=== PATIENT | female | born 1955 | race Hispanic/Latino ===

== ENCOUNTER 2016-11-27 16:16 | Observation (INO) | payer MEDICARE, OTHER ==
--- NOTE | 2016-11-27 16:51 | ED PDOC ---
Arrival/HPI - General Historian: Patient - History of Present Illness Time/Duration: Other (2 days) Context: Home - General Chief Complaint: Upper Extremity Problem/Injury Time Seen by Provider: 11/27/16 16:36 - History of Present Illness Narrative History of Present Illness (Text): 11/27/16 16:30 This 61 yo female presents to this ED c/o left 4th finger tip abscess x 2 days. Patient noted redness extending to her forearm. Patient is currently taking Humira for RA. Denies fever. Denies sob, cp, axilla pain, arm swelling, sick contact, abnormal gait, or recent travel. (Kale Olivo) Past Medical History - Provider Review Nursing Documentation Reviewed: Yes - Infectious Disease Hx of Infectious Diseases: None - Tetanus Immunization Tetanus Immunization: Unknown - Cardiac Hx Hypertension: Yes - Pulmonary Hx Respiratory Disorders: No - Neurological HX Cerebrovascular Accident: Yes Hx Seizures: Yes - HEENT Hx HEENT Disorder: No - Renal Hx Renal Disorder: No - Endocrine/Metabolic Hx Endocrine Disorders: No - Integumentary Hx Dermatological Disorder: No - Musculoskeletal/Rheumatological Hx Rheumatoid Arthritis: Yes - Gastrointestinal Hx Gastrointestinal Disorders: No - Genitourinary/Gynecological Hx Genitourinary Disorders: No - Psychiatric Hx Anxiety: Yes Hx Depression: No Hx Emotional Abuse: No Hx Physical Abuse: No Hx Substance Use: No - Surgical History Hx Cholecystectomy: Yes Hx Hysterectomy: Yes - Anesthesia Hx Anesthesia: Yes - Suicidal Assessment Feels Threatened In Home Enviroment: No Family/Social History - Physician Review Nursing Documentation Reviewed: Yes Family/Social History: No Known Family HX Smoking Status: Light Smoker < 10 Cigarettes Daily Hx Alcohol Use: No Hx Substance Use: No Allergies/Home Meds Allergies/Adverse Reactions: Allergies erythromycin base Allergy (Verified 11/27/16 16:20) ANAPHYLAXIS Penicillins Allergy (Verified 11/27/16 16:20) ANAPHYLAXIS Home Medications: Home Meds Medication Instructions Recorded Confirmed Aspirin [Aspirin Chewable] 1 tab PO DAILY 04/14/13 11/27/16 Hydrochlorothiazide 1 tab PO DAILY 04/14/13 11/27/16 Hydrochlorothiazide/Losartan 1 tab PO DAILY 04/14/13 11/27/16 [Losartan Potassium and Hydrochlorothiazide 12] Meclizine HCl [Meclizine HCl] 25 mg PO TID 04/14/13 11/27/16 Rosuvastatin Calcium [Crestor] 1 tab PO DAILY 04/14/13 11/27/16 levETIRAcetam [Keppra] 1 tab PO BID 04/14/13 11/27/16 Adalimumab [Humira] 40 mg SC Q2W 11/27/16 11/27/16 Gabapentin 400 mg PO QID 11/27/16 11/27/16 Alprazolam [Xanax] 0.5 mg PO TID PRN 11/28/16 11/28/16 Dialyvite Vitamin D 2,000 iu PO DAILY 11/28/16 11/28/16 Furosemide [Lasix] 20 mg PO DAILY 11/28/16 11/28/16 Multivitamin/Iron/Folic Acid 1 tab PO DAILY 11/28/16 11/28/16 [Centrum] Review of Systems - Review of Systems Constitutional: Normal. absent: Fatigue, Weight Change, Fevers, Night Sweats Eyes: Normal ENT: Normal Respiratory: Normal Cardiovascular: Normal Gastrointestinal: Normal Genitourinary Female: Normal Musculoskeletal: Other ((+) abscess noted left 4th finger tip) Skin: Cellulitis Neurological: Normal Endocrine: Normal Hemo/Lymphatic: Normal Psychiatric: Normal Physical Exam Temperature: Afebrile Blood Pressure: Normal Pulse: Regular Respiratory Rate: Normal Appearance: Positive for: Well-Appearing, Non-Toxic, Comfortable Pain Distress: None Mental Status: Positive for: Alert and Oriented X 3 - Systems Exam Head: Present: Atraumatic, Normocephalic Pupils: Present: PERRL Extroacular Muscles: Present: EOMI Conjunctiva: Present: Normal Mouth: Present: Moist Mucous Membranes Neck: Present: Normal Range of Motion Respiratory/Chest: Present: Clear to Auscultation, Good Air Exchange. No: Respiratory Distress, Accessory Muscle Use Cardiovascular: Present: Regular Rate and Rhythm, Normal S1, S2. No: Murmurs Abdomen: Present: Normal Bowel Sounds. No: Tenderness, Distention, Peritoneal Signs Back: Present: Normal Inspection Upper Extremity: Present: Normal ROM, NORMAL PULSES, Tenderness, Swelling, Erythema, Neurovascularly Intact, Capillary Refill < 2s, Other ((+) streaking erythema from left 4th finger, through hand /wrist to entired left forearm.). No: Cyanosis, Edema Lower Extremity: Present: Normal Inspection, NORMAL PULSES, Normal ROM, Erythema , Neurovascularly Intact, Capillary Refill < 2 s. No: Edema Neurological: Present: GCS=15, CN II-XII Intact, Speech Normal Skin: Present: Warm, Dry, Normal Color. No: Rashes Psychiatric: Present: Alert, Oriented x 3, Normal Insight, Normal Concentration Vital Signs Temp Pulse Resp BP Pulse Ox 11/27/16 20:34 67 18 119/64 97 11/27/16 18:41 61 18 117/40 L 99 11/27/16 16:23 98.7 F 77 16 111/60 97 Medical Decision Making Re-evaluation Time: 18:10 Reassessment Condition: Re-examined, Improving,but remains with symptoms - Lab Interpretations I have reviewed the lab results: Yes Interpretation: Abnormal lab values (Sed rate , C-reactive are elevated) ED Course and Treatment: I was available for consultation during PA evaluation. The chart was reviewed by me, and I agree with disposition. The documented history was done by the physician automotive technician instructor. The documented physical exam was done by the physician automotive technician instructor. The documented procedures were done by the physician automotive technician instructor. ( Tom Galvan) 11/27/16 18:[address] Saravia regarding patient symptoms, and physical exam finding. I reviewed labs and imaging with Dr. Saravia. Dr. Saravia agreed with plan for admission (Kale Olivo) - Lab Interpretations Lab Results: 11/27/16 17:00 11/27/16 17:00 Lab Results 11/27/16 17:00: PT 10.9, INR 1.01, APTT 26.4 11/27/16 17:00: C-React Prot High Sens 3.89 H 11/27/16 17:00: Sodium 139, Potassium 3.5 L, Chloride 96 L, Carbon Dioxide 34 H , Anion Gap 13, BUN 40 H, Creatinine 1.7 H, Est GFR ( Amer) 37, Est GFR ( Non-Af Amer) 30, Random Glucose 106, Calcium 8.7, Total Bilirubin 0.4, AST 50 H , ALT 32, Alkaline Phosphatase 85, Total Protein 6.9, Albumin 3.7, Globulin 3.2 , Albumin/Globulin Ratio 1.2 11/27/16 17:00: WBC 7.1, RBC 3.43 L, Hgb 10.7 L, Hct 32.8 L, MCV 95.6, MCH 31.2 , MCHC 32.6, RDW 14.0, Plt Count 217, MPV 9.9, Gran % 44.1 L, Lymph % (Auto) 39.6 H, Hoke % (Auto) 10.2 H, Eos % (Auto) 5.5 H, Baso % (Auto) 0.6, Gran # 3.15 , Lymph # 2.8, Hoke # 0.7 H, Eos # 0.4, Baso # 0.04, ESR 50 H - RAD Interpretation Radiology Orders: 11/27/16 16:57 HAND LEFT 4TH DIGIT (FINGER) [RAD] Stat - Medication Orders Current Medication Orders: Acetaminophen (Tylenol 325mg Tab) 650 mg PO Q6H PRN PRN Reason: Fever >100.4 F Aspirin (Aspirin Chewable) 81 mg PO DAILY [facility] Atorvastatin Calcium (Lipitor) 20 mg PO DIN [facility] Famotidine (Pepcid) 20 mg PO BID [facility] Gabapentin (Neurontin) 400 mg PO QID [facility] PRN Reason: Protocol Last Admin: 11/27/16 22:50 Dose: 400 mg Heparin Sodium (Porcine) (Heparin) 5,000 units SC Q12H [facility] PRN Reason: Protocol Last Admin: 11/27/16 21:00 Dose: Not Given Non-Admin Reason: Patient Refused Hydrochlorothiazide (Microzide) 12.5 mg PO DAILY [facility] Clindamycin Phosphate 900 mg/ (Sodium Chloride) 106 mls @ 106 mls/hr IVPB Q8 [facility] PRN Reason: Protocol Last Admin: 11/27/16 22:49 Dose: 106 mls/hr Ibuprofen (Motrin Tab) 600 mg PO Q6H PRN PRN Reason: Pain, Mild (1-3) Levetiracetam (Keppra) 250 mg PO BID [facility] Last Admin: 11/27/16 20:55 Dose: 250 mg Losartan Potassium (Cozaar) 50 mg PO DAILY [facility] Meclizine HCl (Antivert) 25 mg PO TID [facility] Ondansetron HCl (Zofran Inj) 8 mg IVP Q6H PRN PRN Reason: Nausea/Vomiting Oxycodone HCl (Oxycodone Immediate Release Tab) 30 mg PO Q4H PRN PRN Reason: Pain, severe (8-10) Last Admin: 06/15/17 23:17 Dose: 30 mg Oxycodone HCl (Oxycontin Extended Release Tab) 30 mg PO Q12 [facility] Discontinued Medications Sodium Chloride (Sodium Chloride 0.9%) 1,000 mls @ 999 mls/hr IV .Q1H1M STA Stop: 11/27/16 21:19 Last Admin: 11/27/16 20:49 Dose: 999 mls/hr Oxycodone HCl (Oxycontin Extended Release Tab) 30 mg PO Q12 [facility] Tetanus/Reduced Diphtheria/Acell Pertussis (Boostrix Vaccine Inj) 0.5 ml IM .ONCE ONE Stop: 11/27/16 19:34 Last Admin: 11/27/16 20:47 Dose: 0.5 ml Disposition/Present on Arrival - Present on Arrival Any Indicators Present on Arrival: No History of DVT/PE: No History of Uncontrolled Diabetes: No Urinary Catheter: No History of Decub. Ulcer: No History Surgical Site Infection Following: None - Disposition Have Diagnosis and Disposition been Completed?: Yes Disposition Time: 18:10 Patient Plan: Admission - Disposition Diagnosis: Cellulitis and abscess of hand Disposition: HOSPITALIZED Patient Problems: Current Active Problems Problem Status Onset Cellulitis and abscess of hand Acute Condition: STABLE
[2016-11-27 17:23] LABS: ADD MANUAL DIFF? NO
[2016-11-27 17:39] LABS: ALB/GLOB RATIO 1.2 (1.1-1.8); BILIRUBIN,TOTAL 0.4 mg/dL (0.2-1.3); CALCIUM 8.7 mg/dL (8.4-10.5); POTASSIUM 3.5 mmol/L (3.6-5.0); TOTAL PROTEIN 6.9 g/dL (5.8-8.3)
[2016-11-27 17:53] LABS: BASO # 0.04 K/mm3 (0.0-2.0); BASO % 0.6 % (0.0-3.0); EOS # 0.4 (0.0-0.7); EOS % 5.5 % (1.5-5.0); GRAN # 3.15 (1.4-6.5); GRAN % 44.1 % (50.0-68.0); HEMATOCRIT 32.8 % (36.0-48.0); LYMPH # 2.8 (1.2-3.4); LYMPH % 39.6 % (22.0-35.0); MEAN CELL VOLUME 95.6 fL (80.0-105.0); MEAN CORPUSCULAR HEMOGLOBIN 31.2 pg (25.0-35.0); MEAN CORPUSCULAR HGB CONC 32.6 g/dl (31.0-37.0); MEAN PLATELET VOLUME 9.9 fl (7.0-11.0); MONO # 0.7 (0.1-0.6); MONO % 10.2 % (1.0-6.0); PLATELET COUNT 217 10^3/uL (120.0-450.0); WHITE BLOOD COUNT 7.1 10^3/ul (4.5-11.0)
[2016-11-27 17:58] LABS: INR 1.01 (0.93-1.08); PARTIAL THROMBOPLASTIN TIME 26.4 Seconds (23.7-30.8)
[2016-11-27] MEDS ORDERED: TDAP Vaccine 0.5 mL Syr IM ONE (19:33)
[2016-11-27] MEDS ORDERED: Vancomycin 1 g Inj IVPB SCH (19:45)
[2016-11-27 19:54] LABS: ERYTHROCYTE SEDIMENTATION RATE 50 mm/hr (0.0-20.0)
--- NOTE | 2016-11-27 20:15 | CP.PCM.HP ---
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 She was also complaining of some discoloration in her hand that goes to her wrist. She denies all other symptoms; fevers/chills, JAMESON, CP, SOB, abdominal pain, N/V/D, dysuria/freq/urg, or lower extremity pain/swelling. PMhx: RA, HTN, and previous CVA Social: Denies EtOH, former smoker 5 cigarettes daily, denies illicit drugs, chronic pain on high dose opiates Surgeries: gallbladder surgery, lumpectomy Allergies: PCN, Erythromycin Meds: Humira, Losartan/Hctz, Oxycontin 30mg BID, Oxycodone 30mg Q4H FamHx: Mom with Cervical CA , Sister with Breast CA Present on Admission - Present on Admission Any Indicators Present on Admission: No History of DVT/PE: No History of Uncontrolled Diabetes: No Urinary Catheter: No Decubitus Ulcer Present: No Past Patient History - Infectious Disease Hx of Infectious Diseases: None - Tetanus Immunizations Tetanus Immunization: Unknown - Past Social History Smoking Status: Light Smoker < 10 Cigarettes Daily - CARDIAC Hx Hypertension: Yes - PULMONARY Hx Respiratory Disorders: No - NEUROLOGICAL HX Cerebrovascular Accident: Yes Hx Seizures: Yes - HEENT Hx HEENT Problems: No - RENAL Hx Chronic Kidney Disease: No - ENDOCRINE/METABOLIC Hx Endocrine Disorders: No - INTEGUMENTARY Hx Dermatological Problems: No - MUSCULOSKELETAL/RHEUMATOLOGICAL Hx Rheumatoid Arthritis: Yes - GASTROINTESTINAL Hx Gastrointestinal Disorders: No - GENITOURINARY/GYNECOLOGICAL Hx Genitourinary Disorders: No - PSYCHIATRIC Hx Anxiety: Yes Hx Depression: No Hx Emotional Abuse: No Hx Physical Abuse: No Hx Substance Use: No - SURGICAL HISTORY Hx Cholecystectomy: Yes Hx Hysterectomy: Yes - ANESTHESIA Hx Anesthesia: Yes Meds Allergies/Adverse Reactions: Allergies Allergy/AdvReac Type Severity Reaction Status Date / Time duloxetine [From Cymbalta] Allergy URTICARIA Verified 11/28/16 01:11 erythromycin base Allergy ANAPHYLAXIS Verified 11/27/16 16:20 Penicillins Allergy ANAPHYLAXIS Verified 11/27/16 16:20 pregabalin [From Lyrica] Allergy URTICARIA Verified 11/28/16 01:11 Physical Exam - Constitutional Appears: Well, Non-toxic - Head Exam Additional comments: L sided facial droop - Eye Exam Eye Exam: EOMI - ENT Exam ENT Exam: Mucous Membranes Moist - Neck Exam Neck exam: Positive for: Full Rom. Negative for: Lymphadenopathy - Respiratory Exam Respiratory Exam: Clear to Auscultation Bilateral, NORMAL BREATHING PATTERN. absent: Rales, Rhonchi, Wheezes - Cardiovascular Exam Cardiovascular Exam: REGULAR RHYTHM, +S1, +S2, Systolic Murmur (mitral valve prolapse) - GI/Abdominal Exam GI & Abdominal Exam: Normal Bowel Sounds, Soft. absent: Tenderness - Rectal Exam Rectal Exam: Deferred - Extremities Exam Extremities exam: Positive for: calf tenderness (patient has chronic calf tenderness ). Negative for: pedal edema, tenderness - Back Exam Back exam: absent: CVA tenderness (L), CVA tenderness (R) - Neurological Exam Neurological exam: Alert, Oriented x3 - Psychiatric Exam Psychiatric exam: Normal Affect - Skin Skin Exam: Intact Results - Vital Signs Recent Vital Signs: Last Vital Signs Temp 98.7 F 11/27/16 16:23 Pulse 61 11/27/16 18:41 Resp 18 11/27/16 18:41 BP 117/40 L 11/27/16 18:41 Pulse Ox 99 11/27/16 18:41 - Labs Result Diagrams: 11/27/16 17:00 11/27/16 17:00 Assessment & Plan - Assessment and Plan (Free Text) Assessment: 61yo F admitted for L Ring Finger Cellulitis L Ring Finger Cellulitis -WBC WNL, no fever, does not meet SIRS criteria or sepsis -IV Vanco 1g Q12H -monitor kidney function; has had previous history of renal disease; given bolus 1L NS in ER -encourage PO and liquids -X-Ray does not show any obvious osteo; check ESR monitor clinically HTN -c/w home meds RA and Chronic Pain -c/w home meds and pain management Proph -Hep Sc Q12H -Pepcid -Heart Healthy Diet Case discussed and seen with Dr. Rani Loya PGY1 Night FLoat Decision To Admit - Pt Status Changed To: Hospital Disposition Of: Observation - . Bed Request Type: Med/Surg Admitting Physician: Wilber Saravia <Wilber Saravia - Last Filed: 11/28/16 04:53> Results - Vital Signs Recent Vital Signs: Last Vital Signs Temp 98.5 F 11/27/16 23:38 Pulse 69 11/27/16 23:38 Resp 20 11/27/16 23:38 BP 114/46 L 11/27/16 23:38 Pulse Ox 97 11/27/16 20:34 - Labs Result Diagrams: 11/27/16 17:00 11/27/16 17:00 Attending/Attestation - Attestation I have personally seen and examined this patient.: Yes I have fully participated in the care of the patient.: Yes I have reviewed all pertinent clinical information: Yes Notes (Text): 11/28/16 04:52 Patient was seen when she was in bed # 21 in the ER with medical transcription editor. Agree with history , physical examination, assessment and plan.
[2016-11-27] MEDS ORDERED: Sodium Chloride 0.9% 1,000 ML IV STA (20:19)
[2016-11-27] MEDS ORDERED: oxyCODONE 20 mg ER Tab (oxyCONTIN) PO SCH (22:00)
[2016-11-27] MEDS ORDERED: Vancomycin 1gm in NS 250ml 1 GM/250 ML BAG IVPB SCH (22:00)
[2016-11-27] MEDS ORDERED: oxyCODONE 10 mg ER Tab (oxyCONTIN) PO SCH (22:41)
[2016-11-27] MEDS: oxyCODONE 30 mg Immediate Release Tab PO PRN (23:17)
[2016-11-28 01:01] VITALS: BMI 23.6
[2016-11-28] MEDS: oxyCODONE 30 mg Immediate Release Tab PO PRN ×3 (06:10→15:32)
[2016-11-28 07:49] LABS: ADD MANUAL DIFF? NO
[2016-11-28 07:51] LABS: BASO # 0.05 K/mm3 (0.0-2.0); BASO % 0.8 % (0.0-3.0); EOS # 0.4 (0.0-0.7); EOS % 6.4 % (1.5-5.0); GRAN # 2.25 (1.4-6.5); GRAN % 37.1 % (50.0-68.0); LYMPH # 2.8 (1.2-3.4); LYMPH % 46.5 % (22.0-35.0); MEAN CELL VOLUME 94.6 fL (80.0-105.0); MEAN CORPUSCULAR HEMOGLOBIN 30.9 pg (25.0-35.0); MEAN CORPUSCULAR HGB CONC 32.7 g/dl (31.0-37.0); MEAN PLATELET VOLUME 9.6 fl (7.0-11.0); MONO # 0.6 (0.1-0.6); MONO % 9.2 % (1.0-6.0); PLATELET COUNT 193 10^3/uL (120.0-450.0); WHITE BLOOD COUNT 6.1 10^3/ul (4.5-11.0)
[2016-11-28 08:05] LABS: ALB/GLOB RATIO 1.1 (1.1-1.8); BILIRUBIN,TOTAL 0.3 mg/dL (0.2-1.3); POTASSIUM 3.2 mmol/L (3.6-5.0)
[2016-11-28] MEDS ORDERED: Linezolid 600 mg in D5W 300 ml 600 MG/300 ML BAG IVPB SCH ×3 (08:34→18:00)
[2016-11-28] MEDS ORDERED: Potassium Chloride 20 mEq ER Tab PO STA (09:49)
[2016-11-28] MEDS ORDERED: HYDROCHLOROTHIAZIDE PO SCH (10:00)
[2016-11-28] MEDS ORDERED: [UNRECOGNIZED DRUG - OTHER] PO SCH (10:00)
[2016-11-28] MEDS ORDERED: LOSARTAN PO SCH (10:00)
--- NOTE | 2016-11-28 10:06 | RAD ---
PROCEDURE: Left Hand and 4th digit Radiographs. HISTORY: finger tip infection/pain r/o FB COMPARISON: None. FINDINGS: BONES: Normal. No fracture. JOINTS: Normal. No osteoarthritic changes. SOFT TISSUES: Normal. OTHER FINDINGS: None. IMPRESSION: Negative study
--- NOTE | 2016-11-28 14:00 | CP.PCM.PN ---
<Deniz Kong - Last Filed: 11/28/16 13:55> Subjective - Date & Time of Evaluation Date of Evaluation: 11/28/16 Time of Evaluation: 08:45 - Subjective Subjective: Internal Medicine Progress Note for Dr. Boothe Patient seen and evaluated at bedside. Today is hospital day 2. No overnight events. Reports redness extending from finder to elbow region has significantly improved, back down to hand region. Pain is also improved, now only reports pain in tip of affected finger. Denies fevers, chills, nausea, emesis, cough, loss of sensation in hand, new pains. Objective - Vital Signs/Intake and Output Vital Signs (last 24 hours): Temp Pulse Resp BP Pulse Ox 98.1 F 55 L 18 120/60 94 L 11/28/16 06:00 11/28/16 06:00 11/28/16 06:00 11/28/16 09:54 11/28/16 06:00 Intake and Output: 11/28/16 11/28/16 06:59 18:59 Intake Total 360 Balance 360 - Medications Medications: Current Medications Acetaminophen (Tylenol 325mg Tab) 650 mg PO Q6H PRN PRN Reason: Fever >100.4 F Alprazolam (Xanax) 0.5 mg PO TID PRN; Protocol PRN Reason: Anxiety Last Admin: 11/28/16 12:03 Dose: 0.5 mg Aspirin (Aspirin Chewable) 81 mg PO DAILY [facility] Last Admin: 11/28/16 09:24 Dose: 81 mg Atorvastatin Calcium (Lipitor) 20 mg PO DIN [facility] Famotidine (Pepcid) 20 mg PO BID [facility] Last Admin: 11/28/16 09:22 Dose: 20 mg Gabapentin (Neurontin) 400 mg PO QID [facility] PRN Reason: Protocol Last Admin: 11/28/16 09:21 Dose: 400 mg Heparin Sodium (Porcine) (Heparin) 5,000 units SC Q12H [facility] PRN Reason: Protocol Last Admin: 11/28/16 09:27 Dose: Not Given Hydrochlorothiazide (Microzide) 12.5 mg PO DAILY [facility] Last Admin: 11/28/16 09:24 Dose: Not Given Linezolid (Zyvox 600mg/300ml D5w) 600 mg in 300 mls @ 200 mls/hr IVPB Q12H [facility] PRN Reason: Protocol Stop: 12/05/16 08:35 Last Admin: 11/28/16 09:24 Dose: 200 mls/hr Ibuprofen (Motrin Tab) 600 mg PO Q6H PRN PRN Reason: Pain, Mild (1-3) Levetiracetam (Keppra) 250 mg PO BID [facility] Last Admin: 11/28/16 09:24 Dose: 250 mg Losartan Potassium (Cozaar) 50 mg PO DAILY [facility] Last Admin: 11/28/16 09:23 Dose: Not Given Meclizine HCl (Antivert) 25 mg PO TID [facility] Last Admin: 11/28/16 09:24 Dose: 25 mg Ondansetron HCl (Zofran Inj) 8 mg IVP Q6H PRN PRN Reason: Nausea/Vomiting Oxycodone HCl (Oxycodone Immediate Release Tab) 30 mg PO Q4H PRN PRN Reason: Pain, severe (8-10) Last Admin: 11/28/16 10:59 Dose: 30 mg Oxycodone HCl (Oxycontin Extended Release Tab) 30 mg PO Q12 [facility] Last Admin: 11/28/16 09:19 Dose: 30 mg - Labs Labs: 11/28/16 07:00 11/28/16 07:00 PT 10.9 Seconds (9.9-11.8) 11/27/16 17:00 INR 1.01 (0.93-1.08) 11/27/16 17:00 APTT 26.4 Seconds (23.7-30.8) 11/27/16 17:00 - Constitutional Appears: Well, Non-toxic, No Acute Distress - Head Exam Head Exam: ATRAUMATIC, NORMAL INSPECTION, NORMOCEPHALIC - Eye Exam Eye Exam: EOMI, Normal appearance. absent: Conjunctival injection, Scleral icterus Pupil Exam: absent: Irregular, Unequal - ENT Exam ENT Exam: Mucous Membranes Moist - Neck Exam Neck Exam: absent: Lymphadenopathy, Tenderness - Respiratory Exam Respiratory Exam: Clear to Ausculation Bilateral, NORMAL BREATHING PATTERN. absent: Accessory Muscle Use, Chest Wall Tenderness, Decreased Breath Sounds, Rales, Rhonchi, Wheezes - Cardiovascular Exam Cardiovascular Exam: Clicks (mid-systolic click most prominent at left 3rd-4th intercostal spaces), REGULAR RHYTHM, RRR, +S1, +S2. absent: Bradycardia, Tachycardia, +S4 - GI/Abdominal Exam GI & Abdominal Exam: Soft, Normal Bowel Sounds. absent: Distended, Firm, Rigid , Tenderness, Diminished Bowel Sounds, Hypoactive Bowel Sounds - Extremities Exam Extremities Exam: Full ROM, Normal Capillary Refill Additional comments: Bandaging on left 4th digit digit, redness extending from posterior base of digit into mid-dorsum of hand, streak-like extension approx 1 cm wide. 4th digit ROM restricted 2/2 bandaging, tenderness to palpation at tip of 4th digit , remainder of L hand ROM intact and appropriate, intact and normal sensation - Back Exam Back Exam: absent: paraspinal tenderness, rash noted - Neurological Exam Neurological Exam: Alert, Awake, Oriented x3 - Psychiatric Exam Psychiatric exam: Normal Affect, Normal Mood - Skin Skin Exam: Dry, Intact, Normal Color (except as noted in extremities exam), Warm Assessment and Plan - Assessment and Plan (Free Text) Assessment: This is a 61 yo F with PMH of RA on Humira (failed other therapies), HTN, and previous CVA with residual deficits (speech, left sided facial droop, gait instability requiring a cane, and loss of smell and taste) who presented with 1 day of acutely swollen and tender L 4th digit of hand with erythematous streaking into the elbow. Plan: 1) L hand 4th digit Cellulitis -no leukocytosis or fever, but immunocompromised 2/2 Humira injections for RA -IV Clindamycin x1 day, converted to Linezolid per ID -ID consulted, appreciate all recs: continue Linezolid, 1 more day of IV abx, can d/c on oral abx tomorrow -monitor kidney function; has had previous history of renal disease; given bolus 1L NS in ER -encourage PO and liquids -X-Ray does not show any obvious osteo; check ESR monitor clinically 2) HTN -continue home antihypertensives 3) RA and Chronic Pain -on Humira, refaractory to/failed other management methods (i.e. Methotrexate) -continue home pain management Dispo: Med-Surg, continue IV abx for another day as per ID FEN: Heart-healthy Access: Peripheral IV Consults: ID Ppx: Pepcid for GI, Heparin SC for DVT Patient seen and discussed with attending, Dr. Boothe. <Amelie Boothe - Last Filed: 11/28/16 16:38> Objective - Vital Signs/Intake and Output Vital Signs (last 24 hours): Temp Pulse Resp BP Pulse Ox 98.1 F 55 L 18 120/60 94 L 11/28/16 06:00 11/28/16 06:00 11/28/16 06:00 11/28/16 09:54 11/28/16 06:00 Intake and Output: 11/28/16 11/28/16 06:59 18:59 Intake Total 360 300 Balance 360 300 - Medications Medications: Current Medications Acetaminophen (Tylenol 325mg Tab) 650 mg PO Q6H PRN PRN Reason: Fever >100.4 F Alprazolam (Xanax) 0.5 mg PO TID PRN; Protocol PRN Reason: Anxiety Last Admin: 11/28/16 12:03 Dose: 0.5 mg Aspirin (Aspirin Chewable) 81 mg PO DAILY [facility] Last Admin: 11/28/16 09:24 Dose: 81 mg Atorvastatin Calcium (Lipitor) 20 mg PO DIN [facility] Famotidine (Pepcid) 20 mg PO BID [facility] Last Admin: 11/28/16 09:22 Dose: 20 mg Gabapentin (Neurontin) 400 mg PO QID [facility] PRN Reason: Protocol Last Admin: 11/28/16 14:00 Dose: 400 mg Heparin Sodium (Porcine) (Heparin) 5,000 units SC Q12H [facility] PRN Reason: Protocol Last Admin: 11/28/16 09:27 Dose: Not Given Hydrochlorothiazide (Microzide) 12.5 mg PO DAILY [facility] Last Admin: 11/28/16 09:24 Dose: Not Given Linezolid (Zyvox 600mg/300ml D5w) 600 mg in 300 mls @ 200 mls/hr IVPB Q12H [facility] PRN Reason: Protocol Stop: 12/05/16 06:00 Last Admin: 11/28/16 09:24 Dose: 200 mls/hr Linezolid (Zyvox 600mg/300ml D5w) 600 mg in 300 mls @ 200 mls/hr IVPB Q12 [facility] PRN Reason: Protocol Stop: 11/28/16 19:29 Ibuprofen (Motrin Tab) 600 mg PO Q6H PRN PRN Reason: Pain, Mild (1-3) Levetiracetam (Keppra) 250 mg PO BID [facility] Last Admin: 11/28/16 09:24 Dose: 250 mg Losartan Potassium (Cozaar) 50 mg PO DAILY [facility] Last Admin: 11/28/16 09:23 Dose: Not Given Meclizine HCl (Antivert) 25 mg PO TID [facility] Last Admin: 11/28/16 14:00 Dose: 25 mg Ondansetron HCl (Zofran Inj) 8 mg IVP Q6H PRN PRN Reason: Nausea/Vomiting Oxycodone HCl (Oxycodone Immediate Release Tab) 30 mg PO Q4H PRN PRN Reason: Pain, severe (8-10) Last Admin: 11/28/16 15:32 Dose: 30 mg Oxycodone HCl (Oxycontin Extended Release Tab) 30 mg PO Q12 [facility] Last Admin: 11/28/16 09:19 Dose: 30 mg - Labs Labs: 11/28/16 07:00 11/28/16 07:00 PT 10.9 Seconds (9.9-11.8) 11/27/16 17:00 INR 1.01 (0.93-1.08) 11/27/16 17:00 APTT 26.4 Seconds (23.7-30.8) 11/27/16 17:00 Attending/Attestation - Attestation I have personally seen and examined this patient.: Yes I have fully participated in the care of the patient.: Yes I have reviewed all pertinent clinical information, including history, physical exam and plan: Yes Notes (Text): 11/28/16 16:34 attending note; Patient seen and examined with resident. Cellulitis is improving. No streaking noted. Patient is afebrile and nontoxic. no leukocytosis. ID evaluation requested. Acute renal failure resolved. continue IV clindamycin. upon discharge the patient will follow up with PMD . 0
--- NOTE | 2016-11-28 16:17 | CP.PCM.DIS ---
<Deniz Kong - Last Filed: 11/28/16 16:17> Provider - Provider Date of Admission: 11/27/16 18:15 Attending physician: Amelie Boothe MD Primary care physician: Antwan Wiley MD Consults: ID: [id number] Time Spent in preparation of Discharge (in minutes): 35 Diagnosis - Discharge Diagnosis (1) Cellulitis and abscess of hand Status: Acute Priority: High Comment: Improved Hospital Course - Lab Results Lab Results: Micro Results 11/27/16 18:40 Finger Gram Stain - Final 11/27/16 18:40 Finger Wound Culture - Preliminary Gram Positive Cocci Most Recent Lab Values WBC 6.1 10^3/ul (4.5-11.0) 11/28/16 07:00 RBC 3.17 10^6/uL (3.5-6.1) L 11/28/16 07:00 Hgb 9.8 gm/dL (12.0-16.0) L 11/28/16 07:00 Hct 30.0 % (36.0-48.0) L 11/28/16 07:00 MCV 94.6 fL (80.0-105.0) 11/28/16 07:00 MCH 30.9 pg (25.0-35.0) 11/28/16 07:00 MCHC 32.7 g/dl (31.0-37.0) 11/28/16 07:00 RDW 14.0 % (11.5-14.5) 11/28/16 07:00 Plt Count 193 10^3/uL (120.0-450.0) 11/28/16 07:00 MPV 9.6 fl (7.0-11.0) 11/28/16 07:00 Gran % 37.1 % (50.0-68.0) L 11/28/16 07:00 Lymph % (Auto) 46.5 % (22.0-35.0) H 11/28/16 07:00 [place] % (Auto) 9.2 % (1.0-6.0) H 11/28/16 07:00 Eos % (Auto) 6.4 % (1.5-5.0) H 11/28/16 07:00 Baso % (Auto) 0.8 % (0.0-3.0) 11/28/16 07:00 Gran # 2.25 (1.4-6.5) 11/28/16 07:00 Lymph # 2.8 (1.2-3.4) 11/28/16 07:00 [place] # 0.6 (0.1-0.6) 11/28/16 07:00 Eos # 0.4 (0.0-0.7) 11/28/16 07:00 Baso # 0.05 K/mm3 (0.0-2.0) 11/28/16 07:00 ESR 50 mm/hr (0.0-20.0) H 11/27/16 17:00 PT 10.9 Seconds (9.9-11.8) 11/27/16 17:00 INR 1.01 (0.93-1.08) 11/27/16 17:00 APTT 26.4 Seconds (23.7-30.8) 11/27/16 17:00 Sodium 141 mmol/L (132-148) 11/28/16 07:00 Potassium 3.2 mmol/L (3.6-5.0) L 11/28/16 07:00 Chloride 102 mmol/L (98-107) 11/28/16 07:00 Carbon Dioxide 30 mmol/L (21-33) 11/28/16 07:00 Anion Gap 12 (10-20) 11/28/16 07:00 BUN 28 mg/dL (7-21) H 11/28/16 07:00 Creatinine 1.2 mg/dL (0.5-1.4) 11/28/16 07:00 Est GFR ( Amer) 55 11/28/16 07:00 Est GFR (Non-Af Amer) 46 11/28/16 07:00 Random Glucose 88 mg/dL (70-110) 11/28/16 07:00 Calcium 8.0 mg/dL (8.4-10.5) L 11/28/16 07:00 Total Bilirubin 0.3 mg/dL (0.2-1.3) 11/28/16 07:00 AST 37 U/L (15-39) 11/28/16 07:00 ALT 32 U/L (7-56) 11/28/16 07:00 Alkaline Phosphatase 67 U/L (38-133) 11/28/16 07:00 C-React Prot High Sens 3.89 mg/L (1.00-3.00) H 11/27/16 17:00 Total Protein 6.0 g/dL (5.8-8.3) 11/28/16 07:00 Albumin 3.1 g/dL (3.0-4.8) 11/28/16 07:00 Globulin 2.9 gm/dL 11/28/16 07:00 Albumin/Globulin Ratio 1.1 (1.1-1.8) 11/28/16 07:00 - Hospital Course Hospital Course: Please see progress note for today (11/28/16) for further details. This is a 61 yo F with PMH of RA on Humira (failed other therapies), HTN, and previous CVA with residual deficits (speech, left sided facial droop, gait instability requiring a cane, and loss of smell and taste) who presented with 1 day of acutely swollen and tender L 4th digit of hand with erythematous streaking into the elbow. She has seen significant improvement on IV Clindamycin and Zyvox, and can be discharged to home with 7 days PO Zyvox per ID. Patient is agreeable with this plan. Medication was electronically transmitted to in-house pharmacy and was presented to patient at time of discharge. She was instructed to fully finish the course of antibiotics as prescribed and to follow up with her PMD within 1 week. She expressed understanding and agreement with these instructions. Questions were answered to her satisfaction, and she was then discharged. Patient seen and discussed with attending, Dr. Boothe. Discharge Exam - Additional Findings Additional findings: Please see progress note for today (11/28/16) for Physical exam, unchanged from time of exam to time of discharge Discharge Plan - Discharge Medications Prescriptions: Linezolid [Zyvox] 600 mg PO BID #14 tab - Follow Up Plan Condition: STABLE Disposition: HOME/ ROUTINE Instructions: Cellulitis (DC), Cellulitis (GEN), Abscess (GEN) Additional Instructions: Please take antibiotics as prescribed, please finish full course. Please follow up with your PMD within 1 week of discharge. Referrals: Antwan Wiley MD [Primary Care Provider] - <Amelie Boothe - Last Filed: 11/28/16 16:39> Provider - Provider Date of Admission: 11/27/16 18:15 Attending physician: Amelie Boothe MD Primary care physician: Antwan Wiley MD Hospital Course - Lab Results Lab Results: Micro Results 11/27/16 18:40 Finger Gram Stain - Final 11/27/16 18:40 Finger Wound Culture - Preliminary Gram Positive Cocci Most Recent Lab Values WBC 6.1 10^3/ul (4.5-11.0) 11/28/16 07:00 RBC 3.17 10^6/uL (3.5-6.1) L 11/28/16 07:00 Hgb 9.8 gm/dL (12.0-16.0) L 11/28/16 07:00 Hct 30.0 % (36.0-48.0) L 11/28/16 07:00 MCV 94.6 fL (80.0-105.0) 11/28/16 07:00 MCH 30.9 pg (25.0-35.0) 11/28/16 07:00 MCHC 32.7 g/dl (31.0-37.0) 11/28/16 07:00 RDW 14.0 % (11.5-14.5) 11/28/16 07:00 Plt Count 193 10^3/uL (120.0-450.0) 11/28/16 07:00 MPV 9.6 fl (7.0-11.0) 11/28/16 07:00 Gran % 37.1 % (50.0-68.0) L 11/28/16 07:00 Lymph % (Auto) 46.5 % (22.0-35.0) H 11/28/16 07:00 [place] % (Auto) 9.2 % (1.0-6.0) H 11/28/16 07:00 Eos % (Auto) 6.4 % (1.5-5.0) H 11/28/16 07:00 Baso % (Auto) 0.8 % (0.0-3.0) 11/28/16 07:00 Gran # 2.25 (1.4-6.5) 11/28/16 07:00 Lymph # 2.8 (1.2-3.4) 11/28/16 07:00 [place] # 0.6 (0.1-0.6) 11/28/16 07:00 Eos # 0.4 (0.0-0.7) 11/28/16 07:00 Baso # 0.05 K/mm3 (0.0-2.0) 11/28/16 07:00 ESR 50 mm/hr (0.0-20.0) H 11/27/16 17:00 PT 10.9 Seconds (9.9-11.8) 11/27/16 17:00 INR 1.01 (0.93-1.08) 11/27/16 17:00 APTT 26.4 Seconds (23.7-30.8) 11/27/16 17:00 Sodium 141 mmol/L (132-148) 11/28/16 07:00 Potassium 3.2 mmol/L (3.6-5.0) L 11/28/16 07:00 Chloride 102 mmol/L (98-107) 11/28/16 07:00 Carbon Dioxide 30 mmol/L (21-33) 11/28/16 07:00 Anion Gap 12 (10-20) 11/28/16 07:00 BUN 28 mg/dL (7-21) H 11/28/16 07:00 Creatinine 1.2 mg/dL (0.5-1.4) 11/28/16 07:00 Est GFR ( Amer) 55 11/28/16 07:00 Est GFR (Non-Af Amer) 46 11/28/16 07:00 Random Glucose 88 mg/dL (70-110) 11/28/16 07:00 Calcium 8.0 mg/dL (8.4-10.5) L 11/28/16 07:00 Total Bilirubin 0.3 mg/dL (0.2-1.3) 11/28/16 07:00 AST 37 U/L (15-39) 11/28/16 07:00 ALT 32 U/L (7-56) 11/28/16 07:00 Alkaline Phosphatase 67 U/L (38-133) 11/28/16 07:00 C-React Prot High Sens 3.89 mg/L (1.00-3.00) H 11/27/16 17:00 Total Protein 6.0 g/dL (5.8-8.3) 11/28/16 07:00 Albumin 3.1 g/dL (3.0-4.8) 11/28/16 07:00 Globulin 2.9 gm/dL 11/28/16 07:00 Albumin/Globulin Ratio 1.1 (1.1-1.8) 11/28/16 07:00 Attending/Attestation - Attestation I have personally seen and examined this patient.: Yes I have fully participated in the care of the patient.: Yes I have reviewed all pertinent clinical information, including history, physical exam and plan: Yes Notes (Text): 11/28/16 16:38 attending note; Patient seen and examined with resident. Cellulitis is improving. No streaking noted. Patient is afebrile and nontoxic. no leukocytosis. ID evaluation appreciated. Currently on Zyvox. Wound culture is pending. Follow- up as outpatient. Acute renal failure resolved. continue IV clindamycin. upon discharge the patient will follow up with PMD . diagnosis; Left fourth finger cellulitis Rheumatoid arthritis
--- NOTE | 2016-11-28 17:39 | CP.PCM.CON ---
History of Present Illness - History of Present Illness History of Present Illness: 61 year old female with PMH of rheumatoid arthritis on Humira, HTN, history of CVA, S/P gallbladder surgery, S/P lumpectomy came in to [facility] complaining of pain and swelling of her left 4th finger for the past 2 days. She does not recall if she had trauma to the finger. She denies animal contacts , no soaking her finger, denies soiling of her finger. She denies fever or chills, no nausea or vomiting, no headache or dizziness, no chest pain, no SOB, no abdominal pain, no diarrhea, no dysuria. She also noted streaking from her finger to her forearm and upper arm but did not feel pain in her axillary area. She also denies insect bites. Infectious diseases consult is requested to further evaluate and manage. Review of Systems - Review of Systems All systems: reviewed and no additional remarkable complaints except (as per HPI ) Past Patient History - Infectious Disease Hx of Infectious Diseases: None - Tetanus Immunizations Tetanus Immunization: Unknown - Past Social History Smoking Status: Light Smoker < 10 Cigarettes Daily - CARDIAC Hx Hypertension: Yes - PULMONARY Hx Respiratory Disorders: No - NEUROLOGICAL HX Cerebrovascular Accident: Yes Hx Seizures: Yes - HEENT Hx HEENT Problems: No - RENAL Hx Chronic Kidney Disease: No - ENDOCRINE/METABOLIC Hx Endocrine Disorders: No - HEMATOLOGICAL/ONCOLOGICAL Hx Blood Disorders: Yes Hx Cancer: Yes (skin Ca on face 20 yrs ago) - INTEGUMENTARY Hx Dermatological Problems: No - MUSCULOSKELETAL/RHEUMATOLOGICAL Hx Rheumatoid Arthritis: Yes - GASTROINTESTINAL Hx Gastrointestinal Disorders: No - GENITOURINARY/GYNECOLOGICAL Hx Genitourinary Disorders: No - PSYCHIATRIC Hx Anxiety: Yes Hx Depression: No Hx Emotional Abuse: No Hx Physical Abuse: No Hx Substance Use: No - SURGICAL HISTORY Hx Cholecystectomy: Yes Hx Hysterectomy: Yes - ANESTHESIA Hx Anesthesia: Yes Meds Home Medications: Home Medication List Medication Instructions Recorded Confirmed Type Linezolid [Zyvox] 600 mg PO BID #14 tab 11/28/16 Rx Allergies/Adverse Reactions: Allergies Allergy/AdvReac Type Severity Reaction Status Date / Time duloxetine [From Cymbalta] Allergy URTICARIA Verified 11/28/16 01:11 erythromycin base Allergy ANAPHYLAXIS Verified 11/27/16 16:20 Penicillins Allergy ANAPHYLAXIS Verified 11/27/16 16:20 pregabalin [From Lyrica] Allergy URTICARIA Verified 11/28/16 01:11 - Medications Medications: Current Medications Acetaminophen (Tylenol 325mg Tab) 650 mg PO Q6H PRN PRN Reason: Fever >100.4 F Aspirin (Aspirin Chewable) 81 mg PO DAILY [facility] Atorvastatin Calcium (Lipitor) 20 mg PO DIN [facility] Famotidine (Pepcid) 20 mg PO BID [facility] Gabapentin (Neurontin) 400 mg PO QID [facility] PRN Reason: Protocol Last Admin: 11/27/16 22:50 Dose: 400 mg Heparin Sodium (Porcine) (Heparin) 5,000 units SC Q12H [facility] PRN Reason: Protocol Last Admin: 11/27/16 21:00 Dose: Not Given Hydrochlorothiazide (Microzide) 12.5 mg PO DAILY [facility] Linezolid (Zyvox 600mg/300ml D5w) 600 mg in 300 mls @ 200 mls/hr IVPB Q12 [facility] PRN Reason: Protocol Stop: 11/28/16 09:59 Ibuprofen (Motrin Tab) 600 mg PO Q6H PRN PRN Reason: Pain, Mild (1-3) Levetiracetam (Keppra) 250 mg PO BID [facility] Last Admin: 11/27/16 20:55 Dose: 250 mg Losartan Potassium (Cozaar) 50 mg PO DAILY [facility] Meclizine HCl (Antivert) 25 mg PO TID [facility] Ondansetron HCl (Zofran Inj) 8 mg IVP Q6H PRN PRN Reason: Nausea/Vomiting Oxycodone HCl (Oxycodone Immediate Release Tab) 30 mg PO Q4H PRN PRN Reason: Pain, severe (8-10) Last Admin: 11/28/16 06:10 Dose: 30 mg Oxycodone HCl (Oxycontin Extended Release Tab) 30 mg PO Q12 [facility] Physical Exam - Constitutional Appears: Non-toxic, No Acute Distress - Head Exam Head Exam: NORMAL INSPECTION - ENT Exam ENT Exam: Mucous Membranes Moist - Neck Exam Neck exam: Negative for: Lymphadenopathy, Meningismus - Respiratory Exam Respiratory Exam: Decreased Breath Sounds - Cardiovascular Exam Cardiovascular Exam: +S1, +S2 - GI/Abdominal Exam GI & Abdominal Exam: Soft. absent: Tenderness - Extremities Exam Additional comments: left fourth finger with dressings in place; the streaking in the hand, forearm has decreased and there is no axillary lymphadenopathy Results - Vital Signs Recent Vital Signs: Last Vital Signs Temp 98.5 F 11/27/16 23:38 Pulse 69 11/27/16 23:38 Resp 20 11/27/16 23:38 BP 114/46 L 11/27/16 23:38 Pulse Ox 97 11/27/16 20:34 - Labs Result Diagrams: 11/28/16 07:00 11/28/16 07:00 Labs: Laboratory Results - last 24 hr 11/28/16 11/28/16 07:00 07:00 WBC 6.1 RBC 3.17 L Hgb 9.8 L Hct 30.0 L MCV 94.6 MCH 30.9 MCHC 32.7 RDW 14.0 Plt Count 193 MPV 9.6 Gran % 37.1 L Lymph % (Auto) 46.5 H [place] % (Auto) 9.2 H Eos % (Auto) 6.4 H Baso % (Auto) 0.8 Gran # 2.25 Lymph # 2.8 [place] # 0.6 Eos # 0.4 Baso # 0.05 Sodium 141 Potassium 3.2 L Chloride 102 Carbon Dioxide 30 Anion Gap 12 BUN 28 H Creatinine 1.2 Est GFR ( Amer) 55 Est GFR (Non-Af Amer) 46 Random Glucose 88 Calcium 8.0 L Total Bilirubin 0.3 AST 37 ALT 32 Alkaline Phosphatase 67 Total Protein 6.0 Albumin 3.1 Globulin 2.9 Albumin/Globulin Ratio 1.1 Assessment & Plan - Assessment and Plan (Free Text) Plan: Assessment left fourth finger skin and skin structure infection, purulent, S/P I and D, growing gram positive cocci rheumatoid arthritis on Humira HTN history of CVA S/P gallbladder surgery S/P lumpectomy Acute renal failure Plan Started patient on Zyvox pending identification and sensitivities of the gram positive cocci in the wound - should complete at least 7 days of Zyvox
[2016-11-28 18:35] VITALS: TEMP 98.9
[2016-11-28 19:00] VITALS: BP 108/60; PULSE 63; RESP 20; O2SAT 95
== END 2016-11-28 21:09 | disposition home or self-care (01) ==
LOC: ED 16:16 → INTOOBSV 18:15 → ERH 18:15 → 3RNO 21:20
PROVIDERS: ADMIT Internal Medicine; ATTEND Internal Medicine
DX: L03.012 Cellulitis of left finger (principal); L02.512 Cutaneous abscess of left hand; N17.9 Acute kidney failure, unspecified; I12.9 Hypertensive chronic kidney disease with stage 1 through stage 4 chronic kidney disease, or unspecified chronic kidney disease; N18.9 Chronic kidney disease, unspecified; M06.9 Rheumatoid arthritis, unspecified; G89.29 Other chronic pain; I69.392 Facial weakness following cerebral infarction; I69.398 Other sequelae of cerebral infarction; R26.81 Unsteadiness on feet; Z79.899 Other long term (current) drug therapy; Z87.891 Personal history of nicotine dependence; Z90.710 Acquired absence of both cervix and uterus; Z80.49 Family history of malignant neoplasm of other genital organs; Z80.3 Family history of malignant neoplasm of breast
CPT/HCPCS: 36415; 73140; 80053; 85025; 85610; 85651; 85730; 86140; 87040; 87070; 87181; 90471; 90715; 99285; G0378; J2020; J7040

== ENCOUNTER 2017-01-09 11:18 | Emergency (ER) | payer MEDICARE, OTHER ==
[2017-01-09 11:19] VITALS: BMI 23.6
[2017-01-09 11:33] VITALS: RESP 18; TEMP 98.7
--- NOTE | 2017-01-09 12:36 | ED PDOC ---
Arrival/HPI - General Chief Complaint: Medical Clearance Time Seen by Provider: 01/09/17 11:41 Historian: Patient - History of Present Illness Narrative History of Present Illness (Text): The patient is a 61yo female, with past medical history of rheumatoid arthritis , CVA resulting in left upper extremity weakness (12/25), presents to the Emergency department for evaluation of neck pain and stiffness, worsening over the past three days. Pt reports three days ago, she woke up with some neck stiffness which has worsened and is associated with limited ROM of her neck. Patient reports she is on a daily regimen of Oxycodone and oxycontin due to intractable pain from her arthritis; pt states she has been taking her pain medications with no relief of her symptoms. Of note, pt denies any headache, fever, chills, sore throat, new weaknesses, numbness or tingling. She also denies any recent falls or head injury, any MVC or whiplash type injury to her neck. Time/Duration: < week Symptom Onset: Gradual Symptom Course: Worsening Past Medical History - Provider Review Nursing Documentation Reviewed: Yes - Infectious Disease Hx of Infectious Diseases: None - Tetanus Immunization Tetanus Immunization: Unknown - Cardiac Hx Hypertension: Yes - Pulmonary Hx Respiratory Disorders: No - Neurological HX Cerebrovascular Accident: Yes Hx Seizures: Yes - HEENT Hx HEENT Disorder: No - Renal Hx Renal Disorder: No - Endocrine/Metabolic Hx Endocrine Disorders: No - Hematological/Oncological Hx Blood Disorders: Yes Hx Cancer: Yes (skin Ca on face 20 yrs ago) - Integumentary Hx Dermatological Disorder: No - Musculoskeletal/Rheumatological Hx Rheumatoid Arthritis: Yes Hx Spinal Stenosis: Yes - Gastrointestinal Hx Gastrointestinal Disorders: No - Genitourinary/Gynecological Hx Genitourinary Disorders: No - Psychiatric Hx Anxiety: Yes Hx Depression: No Hx Emotional Abuse: No Hx Physical Abuse: No Hx Substance Use: No - Surgical History Hx Cholecystectomy: Yes Hx Hysterectomy: Yes - Anesthesia Hx Anesthesia: Yes Hx Anesthesia Reactions: No Hx Malignant Hyperthermia: No - Suicidal Assessment Feels Threatened In Home Enviroment: No Family/Social History - Physician Review Nursing Documentation Reviewed: Yes Family/Social History: No Known Family HX, Unknown Family HX Smoking Status: Current Some Days Smoker Hx Alcohol Use: No Hx Substance Use: No Allergies/Home Meds Allergies/Adverse Reactions: Allergies duloxetine [From Cymbalta] Allergy (Verified 11/28/16 01:11) URTICARIA patient develops hives erythromycin base Allergy (Verified 11/27/16 16:20) ANAPHYLAXIS Penicillins Allergy (Verified 11/27/16 16:20) ANAPHYLAXIS pregabalin [From Lyrica] Allergy (Verified 11/28/16 01:11) URTICARIA hives Home Medications: Home Meds Medication Instructions Recorded Confirmed Aspirin [Aspirin Chewable] 1 tab PO DAILY 04/14/13 01/09/17 Hydrochlorothiazide 1 tab PO DAILY 04/14/13 01/09/17 Meclizine HCl 25 mg PO TID 04/14/13 01/09/17 Rosuvastatin Calcium [Crestor] 1 tab PO DAILY 04/14/13 01/09/17 levETIRAcetam [Keppra] 1 tab PO BID 04/14/13 01/09/17 Adalimumab [Humira] 40 mg SC Q2W 11/27/16 01/09/17 Gabapentin 400 mg PO QID 11/27/16 01/09/17 Alprazolam [Xanax] 0.5 mg PO TID PRN 11/28/16 01/09/17 Dialyvite Vitamin D 2,000 iu PO DAILY 11/28/16 01/09/17 Furosemide [Lasix] 20 mg PO DAILY 11/28/16 01/09/17 Multivitamin/Iron/Folic Acid 1 tab PO DAILY 11/28/16 01/09/17 [Centrum Complete Multivit Tab] oxyCODONE [oxyCODONE Immediate 1 tab PO Q4H PRN 01/09/17 01/09/17 Release Tab] oxyCODONE [oxyCONTIN Extended 30 mg PO BID PRN 01/09/17 01/09/17 Release Tab] Review of Systems - Review of Systems Constitutional: absent: Fatigue, Fevers Eyes: absent: Vision Changes ENT: absent: Hearing Changes, Sore Throat Respiratory: absent: SOB, Cough Cardiovascular: absent: Chest Pain, Orthopnea, Syncope Gastrointestinal: absent: Abdominal Pain Genitourinary Female: absent: Dysuria Musculoskeletal: Neck Pain, Other (no new numbness or tingling) Skin: absent: Rash Neurological: absent: Headache, Dizziness, Focal Weakness Endocrine: absent: Polyuria Hemo/Lymphatic: absent: Easy Bleeding Physical Exam - Physical Exam Narrative Physical Exam (Text): Head: Atraumatic. Normocephalic. Eyes: PERRL. EOMI. Conjunctivae are not pale. Visual acuity and mosquera intact. ENT: No angioedema noted. Facial droop, chornic. No facial edema or erythema. Neck: Supple. Decreased ROM due to pain. Diffuse midline c-spine tenderness to palpation noted. Paraspinal muscle spasm, more prominent on left than right. Trachea midline. No masses noted. No JVD. No lymphadenopathy. Cardiovascular: Regular rate. Regular rhythm. Pulmonary/Chest: No evidence of respiratory distress. Back: No CVA tenderness. Extremities: No edema. No cyanosis. No clubbing. Full range of motion in all extremities. No calf tenderness. Skin: Skin is warm and dry. No petechiae. No purpura. Neurological: Alert, awake, and oriented. Normal speech. Left sided facial droop due to history of CVA. Motor strength at baseline. Psychiatric: Good eye contact. Normal interaction, affect, and behavior. Vital Signs Reviewed: Yes Vital Signs Temp Pulse Resp BP Pulse Ox 01/09/17 14:08 82 18 123/64 95 01/09/17 12:46 89 18 125/69 95 01/09/17 11:32 98.7 F 93 H 18 128/72 93 L Blood Pressure: Normal Pulse: Regular Respiratory Rate: Normal Appearance: Positive for: Non-Toxic, Uncomfortable Pain Distress: Moderate Mental Status: Positive for: Alert and Oriented X 3 Medical Decision Making ED Course and Treatment: Impression: 61yo female, presents to Emergency department for evaluation of neck stiffness, worsening over 3 days Differential Diagnosis included but are not limited to: Cervical radiculopathy, torticollis, degenerative disk disease. Plan: -- History reviewed and no trauma or fever indicated, symptoms consistent with likely severe muscle spasm. Medications reviewed, risks of interaction with ordered medications discussed with patient. Pt expresses understanding and is agreeable with plan. -- Toradol 30mg IM -- Valium 5mg PO -- XR C-Spine -- Reassess and disposition Prior Visits: Notes and results from previous visits were reviewed. Progress Notes: Patient on re-evaluation with significant improvement in neck muscle spasm and pain. Neuro exam at her baseline. No chest pain or sob. No difficulty swallowing. 01/09/17 13:28 C-Spine XR as read by provider indicates degenerative changes. Exam after medications shows pt is moving neck more freely. Patient stable for discharge home with flexeril and instructions to follow up with her PCP. Risks and interactions of prescribed medication discussed and reviewed with patient. - RAD Interpretation Radiology Orders: 01/09/17 12:24 CERVICAL SPINE AP & LATERAL [RAD] Stat - Medication Orders Current Medication Orders: Discontinued Medications Cyclobenzaprine HCl (Flexeril) 10 mg PO STAT STA Stop: 01/09/17 13:28 Last Admin: 01/09/17 14:06 Dose: 10 mg Diazepam (Valium) 5 mg PO ONCE ONE PRN Reason: Protocol Stop: 01/09/17 12:24 Last Admin: 01/09/17 12:39 Dose: 5 mg Ketorolac Tromethamine (Toradol) 30 mg IM STAT STA Stop: 01/09/17 12:24 Last Admin: 01/09/17 12:39 Dose: 30 mg - Scribe Statement The provider has reviewed the documentation as recorded by the Sergio Interiano Provider Scribe Attestation: All medical record entries made by the Sergio were at my direction and personally dictated by me. I have reviewed the chart and agree that the record accurately reflects my personal performance of the history, physical exam, medical decision making, and the department course for this patient. I have also personally directed, reviewed, and agree with the discharge instructions and disposition. Disposition/Present on Arrival - Present on Arrival Any Indicators Present on Arrival: No History of DVT/PE: No History of Uncontrolled Diabetes: No Urinary Catheter: No History of Decub. Ulcer: No History Surgical Site Infection Following: None - Disposition Have Diagnosis and Disposition been Completed?: Yes Diagnosis: Torticollis Disposition: HOME/ ROUTINE Disposition Time: 13:30 Patient Plan: Discharge Condition: GOOD Discharge Instructions (ExitCare): Cervical Sprain (ED) Additional Instructions: For any fevers, any headache, any new numbness or weakness, any chest pain or shortness of breath, any sore throat or difficulty swallowing, get rechecked. Follow-up with Dr. Wiley in 1-2 days. Return to ED for any persistent or worsening of symptoms. Prescriptions: Cyclobenzaprine [Cyclobenzaprine HCl] 10 mg PO TID PRN #12 tab PRN Reason: Muscle Spasm Naproxen [Naprosyn Tab] 250 mg PO BID PRN #10 tab PRN Reason: Pain, Mild (1-3) Referrals: Antwan Wiley MD [Primary Care Provider] - Follow up with primary Forms: [facility] ([place])
[2017-01-09 12:46] VITALS: O2SAT 95
[2017-01-09 14:08] VITALS: BP 123/64; PULSE 82
--- NOTE | 2017-01-09 14:42 | RAD ---
PROCEDURE: Cervical spine dated 01/09/2017. AP lateral and open-mouth views of the cervical spine performed. Note that the examination is limited due to obscuration of the odontoid as well as a partial obscuration inferior-anterior aspect C7 segment as well as incomplete visualization C7-T1 disc space. Note that there is also flexion of the cervical spine centered at the cervicothoracic region. HISTORY: Pain COMPARISON: No prior FINDINGS: No acute compression fractures no retropulsed fragments. . Vertebral bodies exhibit normal stature. . There is flexion centered at the level of the cervical thoracic junction with straightening of the normal cervical lordosis above this level. Minimal kyphosis centered at the C3-C4 level. Vertebral bodies otherwise exhibit normal alignment. Facets normally aligned. Multilevel degenerative spondylosis. Changes include varying degrees of disc space narrowing, endplate eburnation and anterior as well as smaller posterior osteophyte formation. The uncovertebral facet joints also appear slightly hypertrophic. Prevertebral soft tissues unremarkable. Impression: Slightly limited study demonstrating no acute fractures as above. Multilevel degenerative spondylosis. If symptoms persist or occult fracture suspected clinically consider followup CT scan or MRI.
== END 2017-01-09 14:18 | disposition home or self-care (01) ==
LOC: ED 11:18
DX: M43.6 Torticollis (principal); I10 Essential (primary) hypertension; Z86.73 Personal history of transient ischemic attack (TIA), and cerebral infarction without residual deficits; Z72.0 Tobacco use
CPT/HCPCS: 72040; 96372; 99282; J1885